=== PATIENT | male | born 1960 | race Caucasian/White ===

== ENCOUNTER → 2020-09-21 | Outpatient (CLI) | payer BC ==
--- NOTE | 2020-09-22 08:05 | REP ---
INDICATION: RT HIP PAIN. COMPARISON: No comparison hip imaging.. TECHNIQUE: Coronal large field of view T1 and T2 weighted scans of both hips are acquired. Axial, coronal, and sagittal imaging planes are utilized for smaller [id number] T2 weighted scans with fat-sat. FINDINGS: There is no evidence of avascular necrosis of either femoral head. Cortical and medullary bone signal intensity is normal in the visualized bony pelvis. No pelvic mass or adenopathy is seen. There is a moderate size right hip joint effusion with a anteriorly positioned periarticular cyst or ganglion coursing in a craniocaudal orientation deep to the femoral artery and vein. There is moderate to severe osteoarthritis of the right hip with superior joint space narrowing, large osteophytes, and sclerosis on both sides of the superior aspect of the right hip. There is degeneration and increased signal intensity in the right acetabular labral cartilage. 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 There is some marrow edema in the acetabulum and femoral head at the level of the narrowed joint space. No definite loose body is seen. Ligamentum teres is intact. The anterior periarticular cyst or ganglion measures 6.0 cm in craniocaudal span by a 1.5 cm medial to lateral by 1.7 cm anterior to posterior. There is a small paralabral cyst at the superior aspect of the joint as well measuring 0.8 by 0.8 cm. Head neck junction morphology is unremarkable apart from the marginal osteophytes. There is minimal osteoarthritis of the left hip. IMPRESSION: Advanced osteoarthritis right hip with degenerative changes in the superior acetabular cartilage, paralabral cyst, and anterior periarticular cyst or ganglion. Chondromalacia joint space narrowing and sclerosis are seen in the right hip joint. <Electronically signed by Wolfgang Ding > 09/22/20 [id number]
== END ==
LOC: M RAD 17:27
PROVIDERS: ATTEND Physician Assistant
DX: M94.251 Chondromalacia, right hip (principal); M16.11 Unilateral primary osteoarthritis, right hip

== ENCOUNTER → 2021-07-30 | Outpatient (CLI) | payer BC | LOC: M LABSMTC 09:30 | PROVIDERS: ATTEND Anesthesiology | DX: Z01.812 Encounter for preprocedural laboratory examination (principal); Z20.822 Contact with and (suspected) exposure to COVID-19 ==

== ENCOUNTER 2021-08-02 09:44 | Day surgery (SDC) | payer BC ==
[~2021-08-02] VITALS: Ht 175.3 cm; Wt 76.3 kg
[~2021-08-02 09:44] MED LIST: DUOVISC (0.50ML VISCOAT/0.85ML PROVISC) OPHTH KIT As Ordered ONE; LIDOCAINE 1% SDV 5ML VIAL As Ordered ONE; LR 1,000 ML IV SCH; MAXITROL OPHTH SUSP 5 ML As Ordered ONE; MIDAZOLAM INJ 2MG/2ML VIAL (J2250 PER 1MG) As Ordered ONE; UNRESOLVED CLARIFICATION ENTRY XX SCH; fentaNYL 100 MCG/2 ML INJECTION (J3010) As Ordered ONE
[2021-08-02] MEDS: TETRACAINE 0.5% OPHTH SOLN 4ML OD SCH ×2 (12:36→12:51)
[2021-08-02] MEDS: FLURBIPROFEN 0.03% OPHTH SOLN 2.5 ML OD SCH ×3 (12:51→13:14)
[2021-08-02] MEDS: PHENYLEPHRINE 2.5% OPHTH SOL 2ML OD SCH ×3 (12:51→13:14)
[2021-08-02] MEDS: CYCLOPENTOLATE 1% OPHTH SOLN 2 ML BTL OD SCH ×3 (12:51→13:14)
[2021-08-02] MEDS ORDERED: fentaNYL 100 MCG/2 ML INJECTION (J3010) As Ordered ONE (14:27)
[2021-08-02] MEDS ORDERED: MIDAZOLAM INJ 2MG/2ML VIAL (J2250 PER 1MG) As Ordered ONE (14:27)
[2021-08-02 15:00] VITALS: BP 115/71
--- NOTE | 2021-08-02 15:11 | ROOPDOC ---
[facility] Report Of Operation Report of Operation DATE OF PROCEDURE: 08/02/2021 PREPROCEDURE DIAGNOSES: Cataract right eye. POSTPROCEDURE DIAGNOSES: Same. PROCEDURE PERFORMED: Cataract extraction with intraocular lens implantation right eye. SURGEON: aJx Price MD CANDLE MOLDER HAND: None ANESTHESIA: Local. ESTIMATED BLOOD LOSS: None. COMPLICATIONS: None. SPECIMENS REMOVED: None DESCRIPTION OF PROCEDURE: The patient was brought to the operating room and prepped and draped in the usual sterile fashion and an eyelid speculum was inserted in the right eye. A paracentesis was made and the anterior chamber was inflated with non-preserved lidocaine. This was followed by injection of Viscoat. A groove was made in the temporal clear cornea which was tunneled forward with the crescent blade and the anterior chamber was entered with a 2.75 keratome. The cystotome was used to make an incision in the center of the capsule and a continuous curvilinear capsulorhexis was created. The lens was hydrodissected until it was found to rotate freely within the capsular bag. Phacoemulsification was then used to remove the lens in its entirety. Irrigation and aspiration were used to remove residual cortical material. The anterior chamber and capsular bag were reinflated with Provisc and an 18.0 diopter SN60AT lens was injected into the capsular bag using the Ayr i njector. The lens was dialed into place using the Sinskey hook. Irrigation and aspiration were used to remove residual viscoelastic. The wound was stromally hydrated until was found to be watertight and the eye was in an appropriate pressure. The eyelid speculum was removed from the eye and Maxitrol drops were placed over the right eye. The patient was transferred to the recovery room in stable condition and will follow up tomorrow. JAX PRICE MD Aug 02, 2021 15:11
== END 2021-08-02 15:00 | disposition home or self-care (01) ==
LOC: M SDC 09:44
PROVIDERS: ATTEND Ophthalmology
DX: H25.11 Age-related nuclear cataract, right eye (principal)
CPT/HCPCS: 66984; J2250; J3010

== ENCOUNTER 2024-07-28 15:22 | Emergency (ER) | payer OTHER, SELFPAY ==
[~2024-07-28] VITALS: Ht 175.3 cm; Wt 76.7 kg
[2024-07-28 19:37] VITALS: BP 154/88; TEMP 97.4; O2SAT 98
[2024-07-28] MEDS: LIDOCAINE 1% MDV 20ML VIAL SC ONE (23:30)
[2024-07-28] MEDS: CEPHALEXIN 500 MG CAP PO ONE (23:34)
[2024-07-28] MEDS: BOOSTRIX VACCINE (TETANUS/DIPHTH/ACEL. PERTUSSIS) 0.5ML SYR IM ONE (23:35)
[2024-07-29] MEDS ORDERED: CEPH500C PO
== END 2024-07-29 00:48 | disposition home or self-care (01) ==
LOC: M ED 15:22
DX: S61.012A Laceration without foreign body of left thumb without damage to nail, initial encounter (principal); X58.XXXA Exposure to other specified factors, initial encounter; Y92.9 Unspecified place or not applicable; Y93.9 Activity, unspecified; Y99.0 Civilian activity done for income or pay